=== PATIENT | male | born 1970 | race Caucasian/White ===

== ENCOUNTER 2019-04-11 08:36 | Inpatient (IN) | payer OTHER ==
[~2019-04-11] VITALS: Ht 185.4 cm; Wt 85.3 kg
[~2019-04-11 08:36] MED LIST: MOTRIN800 MG PO
[2019-04-11 08:37] VITALS: BP 109/70
[2019-04-11 09:03] LABS: BASO % 0.2 % (0.0-1.0); EOS % 0.5 % (1.0-4.0); HEMATOCRIT 44.4 % (42.0-52.0); HEMOGLOBIN 15.2 g/dl (14.0-18.0); LYMPH # 1.2 10*3/uL (1.3-4.4); LYMPH % 14.2 % (27.0-41.0); MEAN CELL VOLUME 90.6 fl (80.0-94.0); MEAN CORPUSCULAR HGB CONC 34.2 g/dl (33.0-37.0); MEAN PLATELET VOLUME 10.3 fl (9.6-12.3); MONO # 0.7 10*3/uL (0.1-1.0); MONO % 8.5 % (3.0-9.0); NEUT # 6.4 10*3/uL (2.3-7.9); NEUT % 76.1 % (47.0-73.0); PLATELET COUNT AUTOMATED 146 10*3/uL (130-400); RED CELL DISTRI WIDTH 12.6 % (0-14.5); WHITE BLOOD COUNT 8.4 10*3/uL (4.8-10.8)
[2019-04-11 09:20] LABS: ALBUMIN 3.9 gm/dl (3.1-4.5); ALKALINE PHOSPHATASE 75 U/L (45-117); BUN 13 mg/dl (7-24); CHLORIDE 106 mmol/L (98-107); CREATININE 1.04 mg/dL (0.70-1.30); POTASSIUM 4.2 mmol/L (3.5-5.1); SGOT/AST 11 IU/L (3-35); SGPT/ALT 16 U/L (12-78); SODIUM 135 mmol/L (136-145); TOTAL PROTEIN 7.8 gm/dL (6.4-8.2)
[2019-04-11 10:36] VITALS: BP 115/65
[2019-04-11 11:28] VITALS: BP 143/88
[2019-04-11 16:00] VITALS: BP 119/69
[2019-04-11 20:00] VITALS: BP 128/66
[2019-04-12] VITALS: BP 125/70
[2019-04-12 06:26] LABS: BASO % 0.3 % (0.0-1.0); EOS # 0.1 10*3/uL (0.0-0.4); EOS % 0.8 % (1.0-4.0); HEMATOCRIT 39.5 % (42.0-52.0); HEMOGLOBIN 13.2 g/dl (14.0-18.0); LYMPH # 1.2 10*3/uL (1.3-4.4); MEAN CELL VOLUME 91.9 fl (80.0-94.0); MEAN CORPUSCULAR HGB 30.7 pg (27.0-31.0); MEAN CORPUSCULAR HGB CONC 33.4 g/dl (33.0-37.0); MEAN PLATELET VOLUME 10.8 fl (9.6-12.3); MONO # 0.5 10*3/uL (0.1-1.0); NEUT # 4.4 10*3/uL (2.3-7.9); NEUT % 71.6 % (47.0-73.0); PLATELET COUNT AUTOMATED 118 10*3/uL (130-400); RED CELL DISTRI WIDTH 12.6 % (0-14.5); WHITE BLOOD COUNT 6.1 10*3/uL (4.8-10.8)
[2019-04-12 06:33] LABS: ALBUMIN 3.1 gm/dl (3.1-4.5); BUN 11 mg/dl (7-24); CHLORIDE 108 mmol/L (98-107); CHOLESTEROL 153 mg/dL (<200); CREATININE 1.03 mg/dL (0.70-1.30); PHOSPHOROUS 2.9 mg/dL (2.5-4.9); SGOT/AST 8 IU/L (3-35); SGPT/ALT 12 U/L (12-78); SODIUM 139 mmol/L (136-145); TOTAL PROTEIN 6.5 gm/dL (6.4-8.2)
[2019-04-12 06:35] LABS: ALKALINE PHOSPHATASE 58 U/L (45-117); HDL CHOLESTEROL 40 mg/dl (40-60); LDL CHOLESTEROL 98 mg/dL (9-159); TRIGLYCERIDES 77 mg/dl (<150); VLDL CHOLESTEROL 15 mg/dL (6-40)
[2019-04-12 06:38] LABS: ACT PARTIAL THROMBO TIME 31.9 SECONDS (20.0-32.1); INTERNATIONAL NORM RATIO 0.9 (2.0-3.5)
[2019-04-12 07:07] LABS: VITAMIN D, 25-HYDROXY 23.2 ng/mL (30-100)
[2019-04-12 08:00] VITALS: BP 115/66
[2019-04-12 12:00] VITALS: BP 109/66
[2019-04-12 14:00] VITALS: BP 113/66
[2019-04-12 16:00] VITALS: BP 130/68
[2019-04-12 20:00] VITALS: BP 123/70
[2019-04-13] VITALS: BP 109/65
[2019-04-13 06:13] LABS: BASO % 0.4 % (0.0-1.0); EOS # 0.1 10*3/uL (0.0-0.4); HEMATOCRIT 38.6 % (42.0-52.0); HEMOGLOBIN 12.9 g/dl (14.0-18.0); LYMPH # 0.9 10*3/uL (1.3-4.4); LYMPH % 17.6 % (27.0-41.0); MEAN CORPUSCULAR HGB 31.1 pg (27.0-31.0); MEAN CORPUSCULAR HGB CONC 33.4 g/dl (33.0-37.0); MEAN PLATELET VOLUME 10.2 fl (9.6-12.3); MONO # 0.5 10*3/uL (0.1-1.0); MONO % 9.3 % (3.0-9.0); NEUT # 3.7 10*3/uL (2.3-7.9); NEUT % 70.9 % (47.0-73.0); PLATELET COUNT AUTOMATED 110 10*3/uL (130-400); RED BLOOD COUNT 4.15 10*6/uL (4.50-5.90); RED CELL DISTRI WIDTH 12.4 % (0-14.5); WHITE BLOOD COUNT 5.2 10*3/uL (4.8-10.8)
[2019-04-13 07:34] VITALS: BP 114/74
[2019-04-13 11:34] VITALS: BP 115/69
[2019-04-13 16:00] VITALS: BP 118/73
[2019-04-13 20:00] VITALS: BP 115/81
[2019-04-14] VITALS: BP 115/66
[2019-04-14 07:51] VITALS: BP 117/73; BP 144/93
[2019-04-14 12:20] VITALS: BP 112/75
[2019-04-14] MEDS ORDERED: AUGMENTIN 875875 MG PO (14:15)
[2019-04-17] MEDS ORDERED: SEPTDS PO (08:06)
== END 2019-04-14 15:25 | disposition home or self-care (01) | DRG 603 ==
LOC: ED 08:36 → EDHOLD 10:57 → 5E 10:57
PROVIDERS: Internal Medicine; Registered Nurse; ADMIT Emergency Medicine
PROC: 0X9 Anatomical Regions, Upper Extremities, Drainage (ICD-10-PCS; principal; 2019-04-14)
DX: L03.113 Cellulitis of right upper limb (principal); E87.1 Hypo-osmolality and hyponatremia; R73.9 Hyperglycemia, unspecified; F17.210 Nicotine dependence, cigarettes, uncomplicated; R00.0 Tachycardia, unspecified; R03.0 Elevated blood-pressure reading, without diagnosis of hypertension; Z83.3 Family history of diabetes mellitus; Z90.89 Acquired absence of other organs; Z82.3 Family history of stroke; Z84.89 Family history of other specified conditions; Z71.6 Tobacco abuse counseling

== ENCOUNTER → 2021-03-07 | Outpatient (CLI) | payer OTHER ==
[~2021-03-07] MED LIST changes: +AUGMENTIN 875875 MG PO; +COLACE100 MG PO; +CRESTOR5 MG PO; +PERCOCET 5-3251 EACH PO; +SEPTDS PO; +ZOFRAN4 MG PO
[2021-03-07 07:27] LABS: HEMATOCRIT 46.5 % (42.0-52.0); MEAN CELL VOLUME 90.6 fl (80.0-94.0); MEAN CORPUSCULAR HGB 29.6 pg (27.0-31.0); MEAN CORPUSCULAR HGB CONC 32.7 g/dl (33.0-37.0); MEAN PLATELET VOLUME 9.9 fl (9.6-12.3); RED BLOOD COUNT 5.13 10*6/uL (4.50-5.90); RED CELL DISTRI WIDTH 13.1 % (0-14.5); WHITE BLOOD COUNT 4.1 10*3/uL (4.8-10.8)
[2021-03-07 07:58] LABS: ALBUMIN 3.8 gm/dl (3.1-4.5); ALKALINE PHOSPHATASE 79 U/L (45-117); BUN 14 mg/dl (7-24); CHLORIDE 107 mmol/L (98-107); CHOLESTEROL 262 mg/dL (<200); CREATININE 0.97 mg/dL (0.70-1.30); LDL CHOLESTEROL 196 mg/dL (9-159); POTASSIUM 3.8 mmol/L (3.5-5.1); SGOT/AST 14 IU/L (3-35); SGPT/ALT 22 U/L (12-78); SODIUM 141 mmol/L (136-145); TOTAL PROTEIN 7.6 gm/dL (6.4-8.2); TRIGLYCERIDES 154 mg/dl (<150)
== END | disposition home or self-care (01) ==
LOC: LAB 07:05
PROVIDERS: ATTEND Family Medicine
DX: Z12.5 Encounter for screening for malignant neoplasm of prostate (principal); Z72.0 Tobacco use; Z13.220 Encounter for screening for lipoid disorders; K40.90 Unilateral inguinal hernia, without obstruction or gangrene, not specified as recurrent

== ENCOUNTER → 2021-04-12 | Day surgery (SDC) | payer OTHER ==
[~2021-04-12] VITALS: Ht 185.4 cm; Wt 88.5 kg
[2021-04-12 07:03] VITALS: BP 116/74
[2021-04-12 08:36] VITALS: BP 106/65
[2021-04-12 08:50] VITALS: BP 93/65
[2021-04-12 09:05] VITALS: BP 102/65
[2021-04-12 09:20] VITALS: BP 108/67
[2021-04-12 09:36] VITALS: BP 109/66
== END | disposition home or self-care (01) ==
LOC: SDC 04-09 14:00 → LAB 00:39 → SDC 07:30 → LAB 14:00
PROVIDERS: ATTEND Surgery
DX: K40.30 Unilateral inguinal hernia, with obstruction, without gangrene, not specified as recurrent (principal); F17.210 Nicotine dependence, cigarettes, uncomplicated; Z90.89 Acquired absence of other organs; Z98.890 Other specified postprocedural states; Z79.899 Other long term (current) drug therapy; Z20.822 Contact with and (suspected) exposure to COVID-19

== ENCOUNTER → 2021-04-27 | Outpatient (CLI) | payer OTHER ==
[2021-04-27 15:01] LABS: HEMATOCRIT 41.6 % (42.0-52.0); MEAN CELL VOLUME 88.3 fl (80.0-94.0); MEAN CORPUSCULAR HGB 29.7 pg (27.0-31.0); MEAN CORPUSCULAR HGB CONC 33.7 g/dl (33.0-37.0); MEAN PLATELET VOLUME 10.1 fl (9.6-12.3); RED BLOOD COUNT 4.71 10*6/uL (4.50-5.90)
[2021-04-27 15:19] LABS: ALKALINE PHOSPHATASE 82 U/L (45-117); BUN 14 mg/dl (7-24); CHLORIDE 109 mmol/L (98-107); CHOLESTEROL 185 mg/dL (<200); CPK 271 U/L (39-308); CREATININE 1.04 mg/dL (0.70-1.30); LDL CHOLESTEROL 127 mg/dL (9-159); SGOT/AST 18 IU/L (3-35); SGPT/ALT 22 U/L (12-78); SODIUM 139 mmol/L (136-145); TOTAL PROTEIN 7.5 gm/dL (6.4-8.2); TRIGLYCERIDES 110 mg/dl (<150)
== END | disposition home or self-care (01) ==
LOC: LAB 14:45
PROVIDERS: ATTEND Family Medicine
DX: E78.00 Pure hypercholesterolemia, unspecified (principal); K40.90 Unilateral inguinal hernia, without obstruction or gangrene, not specified as recurrent

== ENCOUNTER → 2021-06-28 | Outpatient (CLI) | payer OTHER ==
[2021-06-28 16:06] LABS: ALBUMIN 3.7 gm/dl (3.1-4.5); ALKALINE PHOSPHATASE 69 U/L (45-117); BUN 15 mg/dl (7-24); CHLORIDE 106 mmol/L (98-107); CHOLESTEROL 223 mg/dL (<200); CPK 159 U/L (39-308); CREATININE 1.15 mg/dL (0.70-1.30); LDL CHOLESTEROL 133 mg/dL (9-159); POTASSIUM 3.8 mmol/L (3.5-5.1); SGOT/AST 17 IU/L (3-35); SGPT/ALT 21 U/L (12-78); SODIUM 138 mmol/L (136-145); TOTAL PROTEIN 7.4 gm/dL (6.4-8.2); TRIGLYCERIDES 295 mg/dl (<150)
== END | disposition home or self-care (01) ==
LOC: LAB 14:36
PROVIDERS: ATTEND Family Medicine
DX: E78.00 Pure hypercholesterolemia, unspecified (principal)

== ENCOUNTER 2021-08-20 12:40 | Emergency (ER) | payer OTHER ==
[~2021-08-20] VITALS: Ht 185.4 cm; Wt 88.5 kg
[2021-08-20] MEDS ORDERED: Motrin,Rufen800 MG PO (15:52)
[2021-08-20] MEDS ORDERED: MEDROL DOSEPAK4 MG PO (15:52)
== END 2021-08-20 16:03 | disposition home or self-care (01) ==
LOC: ED 12:40
DX: M79.604 Pain in right leg (principal); M25.561 Pain in right knee; Z79.899 Other long term (current) drug therapy